=== PATIENT | female | born 1980 | race Asian ===

== ENCOUNTER → 2016-05-14 | Outpatient (CLI) | payer BC | END | disposition home or self-care (01) | LOC: LABWHC1 12:26 | PROVIDERS: ATTEND Obstetrics & Gynecology | DX: Z36 Encounter for antenatal screening of mother (principal); Z3A.00 Weeks of gestation of pregnancy not specified | CPT/HCPCS: 36415; 82950 ==

== ENCOUNTER 2016-07-28 05:44 | Inpatient (IN) | payer BC ==
[2016-07-28] MEDS ORDERED: OXYTOCIN 10 UNIT/ML 1 ML VIAL IM PRN (06:14)
[2016-07-28] MEDS ORDERED: LIDOCAINE 1% (PF) 10 MG/ML (30 ML SDV) SQ PRN (06:14)
[2016-07-28] MEDS ORDERED: TERBUTALINE 1 MG/ML VIAL SQ PRN (06:14)
[2016-07-28] MEDS ORDERED: CARBOPROST TROMETHAMINE 250 MCG/ML 1 ML AMP IM PRN (06:14)
[2016-07-28] MEDS ORDERED: METHYLERGONOVINE 0.2 MG/ML 1 ML AMP IM PRN (06:14)
[2016-07-28 06:27] LABS: Glucose,Whole Blood 70 mg/dL (75-99)
[2016-07-28 06:31] LABS: Basophils % (A) 0 %; CH 32.8; CHCM 33.3; Eosinophils # (A) 0.1 k/uL (0-0.7); Eosinophils % (A) 2 %; HCT 39.6 % (34.0-46.0); HDW 2.56; HGB 13.2 gm/dL (11.4-16.0); Large Platelets Flag Slight; Luc # (Auto) 0.13; Luc % (Auto) 2; Lymphocytes # (A) 1.9 k/uL (1.0-4.8); Lymphocytes % (A) 33 %; MCH 33.2 pg (25.0-35.0); MCHC 33.4 g/dL (31.0-37.0); MCV 99.2 fL (80.0-100.0); Macrocytosis Slight; Mean Platelet Volume 11.1; Monocytes # (A) 0.2 k/uL (0-1.0); Monocytes % (A) 4 %; Neutrophils # (A) 3.3 k/uL (1.3-7.7); Neutrophils % (A) 59 %; RBC 3.99 m/uL (3.80-5.40); RDW 14.4 % (11.5-15.5); WBC 5.6 k/uL (3.8-10.6); WBC (Perox) 6.22
[2016-07-28 06:54] LABS: Large Platelets Present; Manual Review Performed
[2016-07-28] MEDS ORDERED: fentaNYL (PF) 50 MCG/ML 5 ML AMP ONE (07:20)
[2016-07-28] MEDS ORDERED: SODIUM CHLORIDE 0.9% 100 ML BAG ONE (07:20)
[2016-07-28] MEDS ORDERED: BUPIVACAINE (PF) 0.25% 30 ML VIAL ONE (07:20)
--- NOTE | 2016-07-28 07:23 | P.HPOB ---
History of Present Illness H&P Date: 07/28/16 This is a 35-year-old female 3 para 2002 EDC 08/02/2016 at 39-2/7 weeks ' gestation. Patient presents for induction but is noted to be spontaneously phillip. Fetus is been active throughout the . She denies fluid leakage or vaginal bleeding. Past medical history is essentially negative. Past social history patient is , she has never been a smoker, she denies alcohol or drug use. Past surgical history is negative. Current medications vitamins. ALLERGIES none known. history type is AB+, rubella status immune. VDRL testing, hepatitis B surface antigen, HIV testing, gonorrhea Chlamydia cultures, group B strep cultures all negative. One-hour Glucola 145, three-hour GTT consistent with gestational diabetes, blood sugars under excellent control with dietary measures alone. On exam this is a pleasant female who is 5 foot 0 inches, 133 pounds, vital signs are stable and she is afebrile. The general physical exam is within normal limits. The cervix is 6-7 cm dilated, 90% effaced, -2 station, vertex presentation. Artificial amniorrhexis reveals clear fluid. Patient is requesting epidural. heart tones consistent with reactive NST. Impression: A 9-2/7 weeks intrauterine , here for elective induction but found to be in active spontaneous labor. Gestational diabetes with good blood sugar control. Plan: Close maternal and surveillance. Patient is requesting epidural and this will be placed. Anticipate normal spontaneous vaginal delivery. Past Medical History Past Medical History: No Reported History Additional Past Medical History / Comment(s): Patient speaks very little A[place]i. Her Denny is at the bedside and is an excellent communicator and health program manager. History of Any Multi-Drug Resistant Organisms: None Reported Past Surgical History: No Surgical Hx Reported Past Anesthesia/Blood Transfusion Reactions: No Reported Reaction Past Psychological History: No Psychological Hx Reported Smoking Status: Never smoker Past Alcohol Use History: None Reported Past Drug Use History: None Reported Medications and Allergies Home Medications Medication Instructions Recorded Confirmed Type Pnv with Ca,No.72/Iron/FA 1 tab PO DAILY 02/15/14 07/28/16 History [ Plus Multivitamin Tab] Allergies Allergy/AdvReac Type Severity Reaction Status Date / Time No Known Allergies Allergy Verified 06/13/16 14:04 Exam - Vital Signs Vital signs: Intake and Output 07/27/16 07/28/16 07/28/16 22:59 06:59 14:59 Other: Weight 60.328 kg Results Result Diagrams: 07/28/16 06:01 Abnormal Lab Results - Last 24 Hours (Table) 07/28/16 07/28/16 Range/Units 06:01 06:25 Plt Count 117 L (150-450) k/uL POC Glucose (mg/dL) 70 L (75-99) mg/dL
[2016-07-28] MEDS ORDERED: BUPIVACAINE (PF) 0.25% 25 ML, fentaNYL (PF) 200 MCG in SODIUM CHLORIDE 0.9% 71 ML EPIDURAL ONE (07:29)
[2016-07-28] MEDS: OXYTOCIN 20 UNITS/1000 ML NS 1,000 ML IV SCH ×2 (07:36→12:51)
[2016-07-28] MEDS: LACTATED RINGERS 1,000 ML IV SCH ×2 (07:36→07:41)
[2016-07-28 08:17] VITALS: RESP 16; BMI 25.9
[2016-07-28] MEDS ORDERED: WITCH HAZEL 1 EACH MED..PAD TOPICAL PRN (10:03)
[2016-07-28] MEDS ORDERED: LANOLIN CREAM 5 GM TUBE TOPICAL PRN (10:03)
[2016-07-28] MEDS ORDERED: SIMETHICONE 80 MG CHEWABLE PO PRN (10:03)
[2016-07-28] MEDS ORDERED: BENZOCAINE/MENTHOL SPRAY 1 GM/SPRAY AEROSOL TOPICAL PRN (10:03)
[2016-07-28] MEDS ORDERED: ZOLPIDEM 5 MG TAB PO PRN (10:03)
[2016-07-28] MEDS ORDERED: HYDROCORTISONE 2.5% RECTAL CREAM 30 GM TUBE RECTAL PRN (10:03)
[2016-07-28] MEDS ORDERED: diphenhydrAMINE 25 MG CAP PO PRN (10:03)
[2016-07-28] MEDS ORDERED: Acetaminophen-Codeine 300-30mg TAB PO PRN (10:03)
[2016-07-28] MEDS ORDERED: ACETAMINOPHEN TAB 325 MG TAB PO PRN (10:03)
[2016-07-28] MEDS ORDERED: diphenhydrAMINE 50 MG/ML 1 ML VIAL IVP PRN ×2 (10:03)
[2016-07-28] MEDS ORDERED: diphenhydrAMINE 50 MG CAP PO PRN (10:03)
--- NOTE | 2016-07-28 10:03 | P.PROBDLV ---
Vaginal Delivery Note - . Vaginal Delivery Note: This is a 35-year-old female 3 para 2001 EDC 08/02/2016 at 39-2/7 weeks ' gestation. Patient was initially scheduled for induction but presented in early spontaneous labor. was unremarkable, group B strep cultures negative, blood type AB positive, please see my dictated history and physical for details. Artificial amniorrhexis revealed clear fluid. Epidural was placed per her request. Oxytocin augmentation was started and titrated per hospital protocol. She progressed well through the first stage of labor was judged to be completely dilated. The perineal body was prepped and draped in usual sterile fashion. With excellent maternal expulsive efforts the infant's head crowned in the occiput anterior position. There was a nuchal cord 1 that was tight and reduced on the perineal body. The left or anterior shoulder was then delivered from underneath the pubic symphysis at which time the oropharynx, nasopharynx, and external nares were all bulb suctioned on the perineal body. Patient was officially delivered of a liveborn female at 0946 hours. Umbilical cord was doubly clamped and ligated, she was handed to waiting nurses for evaluation where scores of 9 and 9 at one and 5 minutes respectively were given. The placenta delivered spontaneously, it was inspected and noted to be intact with trivascular cord at 0950 hours. The perineal body was then redraped. Inspection of the cervix, vagina, perineum and periurethral areas revealed a small first-degree midline perineal laceration at 6:00. This was injected with 1% lidocaine, and repaired in the usual fashion using 3-0 Vicryl suture for excellent reapproximation. The fundus is firm and in the midline, symmetric and 18 week size upon completion of delivery. Infant weighed 3965 g or 8 lbs. 12 oz. The patient and her and family are allowed to begin the bonding experience in the LDR.
[2016-07-28] MEDS: IBUPROFEN 600 MG TAB PO PRN ×2 (10:17→20:27)
[2016-07-28 13:47] LABS: Hemoglobin A1C 5.1 % (4.2-6.1)
[2016-07-28] MEDS: SENNOSIDES-DOCUSATE SODIUM 1 EACH TAB PO SCH (20:27)
[2016-07-29] MEDS: LACTATED RINGERS 1,000 ML IV SCH (00:18)
[2016-07-29] MEDS: SENNOSIDES-DOCUSATE SODIUM 1 EACH TAB PO SCH (07:48)
[2016-07-29] MEDS: IBUPROFEN 600 MG TAB PO PRN ×2 (07:49→15:19)
--- NOTE | 2016-07-29 08:12 | P.DS ---
Providers Date of admission: 07/28/16 05:44 Expected date of discharge: 07/29/16 Attending physician: Lacey Mayfield Primary care physician: [facility] Course: This is a 35-year-old female 3 para 2001 EDC 08/02/2016 at 39-2/7 weeks ' gestation. Patient presented for induction with favorable multiparous cervix but was actually found to be in early spontaneous labor. Fetus is been active throughout the . is unremarkable, blood type AB+, rubella status immune, group B strep cultures negative. Patient has been following blood sugars at home with excellent results secondary to gestational diabetes. Please see my dictated history and physical for details. Artificial amniorrhexis revealed clear fluid. Epidural was placed per her request. She quickly went on to deliver a liveborn female infant with scores of 9 and 9 at one and 5 minutes respectively. There was a nuchal cord 1 that was reduced on the perineal body. A small midline first-degree laceration was easily repaired. Estimated blood loss 300 mL's. Infant weight 8 lbs. 12 oz. or 3965 g. Please see dictated delivery summary for details. This morning the patient is doing well. She is voiding, ambulating and passing flatus without difficulty. Vital signs are stable and she is afebrile. Fundus is firm and in the midline, symmetric and 18 week size. Vaginal bleeding is minimal to moderate. Pain is well controlled. [place] infant is doing well. Breasts are not engorged. Patient has no problems or difficulties this morning. She is therefore being discharged home today in very good condition. She will follow-up with me in the office in 6 weeks. I have reminded her no intercourse , tampons or douching. She will use [id number] Motrin products as needed for pain, 200 mg ibuprofen pills, 3 every 6 hours as needed. I've asked her to call me with any fevers shakes or chills, foul smelling or copious lochia, with the passage of large blood clots, with any pain not alleviated by ibuprofen, or indeed with any concerns. Patient Condition at Discharge: Good Plan - Discharge Summary Discharge Medication List Pnv with Ca,No.72/Iron/FA [ Plus Multivitamin Tab] 1 tab PO DAILY [History] Follow up Appointment(s)/Referral(s): Lacey Mayfield MD [STAFF PHYSICIAN] - 6 Weeks Discharge Disposition: HOME SELF-CARE
[2016-07-29 08:50] VITALS: BP 92/65; PULSE 65; TEMP 98.2
== END 2016-07-29 15:25 | disposition home or self-care (01) | DRG 775 ==
LOC: 4FBP 05:44
PROVIDERS: ADMIT Obstetrics & Gynecology; ATTEND Obstetrics & Gynecology
PROC: 10E0XZZ Delivery of Products of Conception, External Approach (ICD-10-PCS; principal; 2016-07-28)
PROC: 0HQ9XZZ Repair Perineum Skin, External Approach (ICD-10-PCS; 2016-07-28)
PROC: 00HU33Z Insertion of Infusion Device into Spinal Canal, Percutaneous Approach (ICD-10-PCS; 2016-07-28)
PROC: 3E0R3CZ (ICD-10-PCS; 2016-07-28)
DX: O24.429 Gestational diabetes mellitus in childbirth, unspecified control (principal); O69.81X0 Labor and delivery complicated by cord around neck, without compression, not applicable or unspecified; O70.0 First degree perineal laceration during delivery; Z37.0 Single live birth; Z3A.39 39 weeks gestation of pregnancy
CPT/HCPCS: 83036; 85025; 88307